=== PATIENT | male | born 1940 | race Caucasian/White ===

== ENCOUNTER → 2024-03-03 12:54 | Outpatient (REF) | payer OTHER, SELFPAY | LOC: HWRAD 12:54 | PROVIDERS: ATTENDING PHYSICIAN Nurse Practitioner Family | DX: M54.42 Lumbago with sciatica, left side (principal) | CPT/HCPCS: 72110; 72202; 72220 ==

== ENCOUNTER → 2024-07-24 09:21 | Outpatient (REF) | payer OTHER, SELFPAY | LOC: HWRAD 09:21 | PROVIDERS: ATTENDING PHYSICIAN Nurse Practitioner | DX: R05.1 Acute cough (principal) | CPT/HCPCS: 71046 ==

== ENCOUNTER → 2024-08-14 15:09 | Outpatient (REF) | payer OTHER, SELFPAY | LOC: HWRAD 15:09 | PROVIDERS: ATTENDING PHYSICIAN Physician Assistant; FAMILY PHYSICIAN Nurse Practitioner Family | DX: M25.552 Pain in left hip (principal) | CPT/HCPCS: 73502 ==

== ENCOUNTER → 2024-09-07 10:52 | Outpatient (REF) | payer OTHER, SELFPAY | LOC: HWRAD 10:52 | PROVIDERS: ATTENDING PHYSICIAN Nurse Practitioner | DX: J18.9 Pneumonia, unspecified organism (principal) | CPT/HCPCS: 71046 ==

== ENCOUNTER → 2024-10-09 07:04 | Outpatient (REF) | payer OTHER, SELFPAY | LOC: MRI 3T 07:04 | PROVIDERS: ATTENDING PHYSICIAN Physician Assistant; FAMILY PHYSICIAN Nurse Practitioner Family; REFERRING PHYSICIAN Nurse Practitioner | DX: M54.16 Radiculopathy, lumbar region (principal); Z87.01 Personal history of pneumonia (recurrent) | CPT/HCPCS: 71046; 72148 ==

== ENCOUNTER → 2025-02-21 16:35 | Outpatient (REF) | payer OTHER, SELFPAY | LOC: RAD 16:35 | PROVIDERS: ATTENDING PHYSICIAN Nurse Practitioner Adult Health; FAMILY PHYSICIAN Nurse Practitioner Family | DX: I63.89 Other cerebral infarction (principal); H53.2 Diplopia; R26.89 Other abnormalities of gait and mobility | CPT/HCPCS: 70496; 70498; Q9967 ==

== ENCOUNTER 2025-03-03 20:43 | Emergency (ER) | payer OTHER, SELFPAY ==
[2025-03-03 20:51] VITALS: BP 209/95
[2025-03-03 21:21] VITALS: BP 190/73
[2025-03-03 21:37] LABS: ALT (SGPT) 10 U/L (0-50); AST (SGOT) 13 U/L (17-59); Albumin 4.0 g/dl (3.5-5.0); Alkaline Phosphatase 72 U/L (38-126); Blood Urea Nitrogen 44 mg/dl (9-20); Calcium 9.2 mg/dl (8.4-10.2); Carbon Dioxide 18 mmol/L (22-30); Chloride 102 mmol/L (98-107); Estimated Creatinine Clearance 25 ml/min; Glucose 130 mg/dl (70-99); Potassium 5.4 mmol/L (3.5-5.1); Sodium 132 mmol/L (135-145); Total Protein 6.9 g/dl (6.3-8.2); eGFR 34.14
[2025-03-03 22:00] VITALS: BP 165/78
[2025-03-03 22:02] LABS: Hematocrit 28.0 % (39.0-52.0); Hemoglobin 9.7 g/dL (13.0-18.0); Mean Corp Hgb Conc. 34.6 g/dL (33.0-37.0); Mean Corpuscular Volume 83.8 fL (80.0-94.0); Nucleated Red Blood Cells % 0 % (-); Platelet Count 465 10^3/uL (130-400); Red Cell Dist. Width 12.1 % (11.5-14.5)
--- NOTE | 2025-03-03 22:24 | ED.GENMED ---
History of Present Illness
General
Chief Complaint: Abnormal Lab Value
Source: patient and physician (d/w Nimo Lambert, states cr was 2.5 yesterday)
Exam Limitations: none
Time Seen by Provider: 03/03/25 21:07
Nursing documentation reviewed up to this point in time: agreed with
History of Present Illness
History of Present Illness:
84-year-old male Emergency Department due to lethargy, which he states is been going on for a long time. He was treated for pneumonia and that has improved. Yesterday he had labs drawn that showed potassium 7.0. He was sent to the emergency
department today.
Past History
Past History
ED Past Medical History: GERD, HTN, Hypercholesterolemia, IDDM and NIDDM
ED Past Surgical History: Orthopedic (neck sugery), Tonsilectomy and Urological (prostatectomy)
Social History
Tobacco: Non-smoker
Alcohol: None
Drug: None
Personal:
Living: with family
Review of Systems
Review of Systems
Allergies reviewed?: Yes
All Other Systems: Not applicable
Constitutional: Reports no symptoms
EENT: Reports no symptoms
Respiratory: Reports no symptoms
Cardiac: Reports no symptoms
ABD/GI: Reports no symptoms
: Reports no symptoms
Musculoskeletal: Reports no symptoms
Skin: Reports no symptoms
Neurological: Reports weakness
Endocrine: Reports no symptoms
Hematologic/Lymphatic: Reports no symptoms
Psychiatric: Reports no symptoms
Phy Exam
Physical Exam
Physical Exam:
Physical Exam
General: no apparent distress, not acutely ill
Neck: supple. no meningeal signs. normal posterior pharynx
Heart: s1/s2 regular rate and rhythm, no murmur. equal radial
pulses.
HEENT: Pupils equal round reactive to light, EOMI
Lungs: no acute respiratory distress. clear bilaterally
Abdomen: normal bowel sounds. not tender. no CVAT
Neuro: alert and oriented. no focal neurological deficits cranial nerves II through XII intact
Skin: no rash
Psychiatric: well kept. interactive and cooperative
Extremities: no edema. no calf tenderness. negative homans. good distal pulses
Course
Orders/Labs/Results
Orders:
Orders
03/03/25 20:44
Electrocardiogram (*1) Urgent
Reason for Study: Other
Other Reason for Exam: hyperkalemia
03/03/25 20:45
EKG- Treatment ONCE
03/03/25 21:05
Comprehensive Metabolic Panel Urgent
03/03/25 21:56
Complete Blood Count/With Diff Urgent
Abnormal Lab Results
03/03/25 03/03/25
21:05 21:56
RBC 3.34 L 10^6/uL
(4.70-6.10)
Hgb 9.7 L g/dL
(13.0-18.0)
Hct 28.0 L %
(39.0-52.0)
Plt Count 465 H 10^3/uL
(130-400)
Abs Immat Gran (auto) 0.1 H 10^3/uL
(0-0.05)
Absolute Neuts (auto) 8.0 H 10^3/uL
(1.4-6.5)
Absolute Monos (auto) 0.7 H 10^3/uL
(0.1-0.6)
Neutrophils % 76.4 H %
(42.2-75.2)
Lymphocytes % 13.3 L %
(20.5-51.1)
Sodium 132 L mmol/L
(135-145)
Potassium 5.4 H mmol/L
(3.5-5.1)
Carbon Dioxide 18 L mmol/L
(22-30)
BUN 44 H mg/dl
(9-20)
Creatinine 1.9 H mg/dL
(0.7-1.3)
Glucose 130 H mg/dl
(70-99)
AST 13 L U/L
(17-59)
03/03/25 21:56
03/03/25 21:05
Vital Signs
Initial and Last Documented VS:
Initial Vital Signs
Temp Pulse Resp BP Pulse Ox
97.3 F 65 18 209/95 99
03/03/25 20:51 03/03/25 20:51 03/03/25 20:51 03/03/25 20:51 03/03/25 20:51
Last Documented Vital Signs
Temp Pulse Resp BP Pulse Ox
97.3 F 61 15 165/78 95
03/03/25 20:51 03/03/25 22:15 03/03/25 22:00 03/03/25 22:00 03/03/25 22:15
MDM/Problems Addressed
Differential Diagnosis Includes:
Hyperkalemia, dysrhythmia
MDM/Problems Addressed:
84-year-old male with chronic renal failure, hyperkalemia on labs yesterday, normal today. Possible lab error. Patient stable for discharge.
Chronic conditions affecting care: Kidney disease
Acute Exacerbation and/or Progression of Chronic Illness: Kidney disease
*Pulse Oximetry
SaO2: 95
Oxygen Mode of Delivery: Room air
Patient hypoxic: no
*EKG
Interpreted by ED Provider?: Yes
EKG Intrepretation Date: 03/03/25
EKG Intrepretation Time: 20:48
Interpretation: abnormal
Comparison EKG: no comparison EKG present
Heart Rate: 64
Rate: normal
Rhythm: sinus
Weld: left axis deviation
Interval: normal interval
QRS Pattern: normal QRS
Ischemia: no ischemia
*Foundry Tender Interpretation
Rate: Foundry Tender- N/A
*Critical Care Note
Total Time (30-74mins, 75-104mins- exclusive of procedures): Not Applicable
Data Reviewed
Review of Other/Old Records Reveals: Labs (d/w Nimo Lambert, states cr was 2.5 yesterday)
Source: physician
Patient Management
Social determinants of health affecting care: Living situation and Strong social support
Escalation/DeEscalation of care consider admission/obs:
admit not indicated
ED Attending Note
-
Portions of this chart may have been created with voice recognition software.� Occasional wrong word or��sound alike� substitutions may have occurred due to the inherent limitations of voice recognition software.
Discharge Plan
Departure
Patient Disposition: Home (Routine Discharge)
Date of Disposition: 03/03/25
Time of Disposition: 22:38
Patient with high blood pressure during this ER visit?: Yes
Condition: Good
Discharge Problem:
Chronic renal insufficiency, Hx of hyperkalemia
Instructions: Chronic kidney disease, BLOOD PRESSURE
Referrals:
Randi Paul CRNP [Family Provider, Family Practice] - Call in 1-3 days for appt
Interventions
Interventions:
*Risk Screen - Suicide Last Done: 03/03/25 20:51
*General Assessment Last Done: 03/03/25 20:51
*Neglect/Abuse Screening Last Done: 03/03/25 20:51
*ED- Fall Risk Assessment Last Done: 03/03/25 21:21
*ED COVID-19 Vaccine History Last Done: 03/03/25 21:21
Discharge Date and Time
Print Language: GERMAN
[2025-03-03 23:04] VITALS: BP 173/82
== END 2025-03-03 23:25 | disposition home or self-care (01) ==
LOC: EMR 20:43
PROVIDERS: Student in an Organized Health Care Education/Training Program; EMERGENCY PHYSICIAN Emergency Medicine; FAMILY PHYSICIAN Nurse Practitioner Family
DX: E87.5 Hyperkalemia (principal); E11.22 Type 2 diabetes mellitus with diabetic chronic kidney disease; I12.9 Hypertensive chronic kidney disease with stage 1 through stage 4 chronic kidney disease, or unspecified chronic kidney disease; N18.9 Chronic kidney disease, unspecified; E78.00 Pure hypercholesterolemia, unspecified; Z79.4 Long term (current) use of insulin
CPT/HCPCS: 99284; 80053; 85025; 93005

== ENCOUNTER → 2025-03-19 10:46 | Outpatient (REF) | payer OTHER, SELFPAY | LOC: PAVMRI 10:46 | PROVIDERS: ATTENDING PHYSICIAN Nurse Practitioner Adult Health; FAMILY PHYSICIAN Nurse Practitioner Family | DX: I63.89 Other cerebral infarction (principal); H53.2 Diplopia; R26.89 Other abnormalities of gait and mobility | CPT/HCPCS: 70551 ==